=== PATIENT | female | born 1960 ===

== ENCOUNTER 2021-09-02 15:58 | Observation (INO) | payer BC ==
[~2021-09-02] VITALS: Ht 162.6 cm; Wt 86.1 kg
[2021-09-02] MEDS ORDERED: ALEVE 220MG220 MG PO (17:14)
[2021-09-02 17:42] VITALS: BP 103/61; PULSE 105; TEMP 98.3
--- NOTE | 2021-09-02 18:16 | NUR ---
PATIENT BROUGHT TO FLOOR AROUND 1700. PATIENT ORIENTED TO ROOM. ASSESSMENT PERFORMED. NS HANGING AT 125ML/HOUR. IV TO LEFT HAND, FLUSHES WELL. PATIENT REPORTS PAIN, DENIES NEED FOR PAIN MEDICATION. PATIENT NAUSEATED ON ARRIVAL. DENIES NEED FOR ZOFRAN. PATIENT INSTRUCTED ON USE OF HAT AND HOW TO STRAIN URINE. PATIENT RESTING IN BED WITH CALL LIGHT NEAR.
[2021-09-02 19:08] VITALS: BP 98/45; PULSE 90; TEMP 98.6
[2021-09-02 19:23] VITALS: BP 93/41; PULSE 92; TEMP 98.6
[2021-09-02 19:38] VITALS: BP 90/50; PULSE 82
[2021-09-02 20:03] VITALS: BP 98/45; PULSE 87; TEMP 98.6
--- NOTE | 2021-09-02 22:14 | NUR ---
Pt to the floor at 1945 from PACU. Pt is A&Ox4, assessment completed. Pt tolerating PO intake well. Pt has urinated without difficulty and ambulated around room. Pt has no complaints of pain, all other needs met at this time. Call light within reach.
--- NOTE | 2021-09-02 22:16 | NUR ---
Pt education provided. All discharge criteria met. Pt expresses understanding in regards to education and has no questions. Pt escorted from floor via wheelchair with PCT at 0535.
--- NOTE | 2021-09-02 22:36 | NUR ---
Pts IV was removed from L hand without difficulty. Wrapped in gauze and coband.
== END 2021-09-02 21:45 | disposition home or self-care (01) ==
LOC: SURG 15:58
PROVIDERS: ADMIT Urology
DX: N20.1 Calculus of ureter (principal); N13.1 Hydronephrosis with ureteral stricture, not elsewhere classified
CPT/HCPCS: C2617; G0378; J0690; J1100; J2370; J2405; J2704; J3010; J7030; Q9967